=== PATIENT | female | born 1960 | race Caucasian/White ===

== ENCOUNTER 2016-07-23 16:36 | Emergency (ER) | payer MEDICARE ==
[2016-07-23 16:58] VITALS: O2SAT 98
--- NOTE | 2016-07-23 17:15 | ED.PDOC ---
History of Present Illness - General Chief Complaint: Abdominal Pain Stated Complaint: abdominal pain Time Seen by Provider: 07/23/16 16:40 Source: patient Additional Information: Constipated no bowel movement for 3 days - History of Present Illness Initial Comments: Rohit 55 y/o female with history of asthma and osteoporosis seen today with abdominal pain and no bowel movements since 3 days ago.No nausea or vomiting , denies abdominal surgeries.Seen by her primary md reinier and was prescribed cipro and mag citrate Timing/Duration: other - 3 days ago Severity: moderate Improving Factors: nothing Worsening Factors: nothing Associated Symptoms: denies symptoms Allergies/Adverse Reactions: Allergies NO KNOWN ALLERGY Allergy (Verified 04/06/15 11:38) Home Medications: Ambulatory Orders Alendronate Sodium [Fosamax] 70 mg PO WKLY 08/12/15 Meloxicam 15 mg PO DAILY 08/12/15 Montelukast Sodium [Singulair] 10 mg PO DAILY 08/12/15 Docusate Sodium [Dulcolax Stool Softener] 200 mg PO BEDTIME #60 cap 07/23/16 Pravastatin Sodium 40 mg PO DAILY 07/23/16 Review of Systems - Review of Systems Constitutional: States: no symptoms reported EENTM: States: no symptoms reported Respiratory: States: no symptoms reported Cardiology: States: no symptoms reported Gastrointestinal/Abdominal: States: see HPI, abdominal pain, constipation Genitourinary: States: no symptoms reported Musculoskeletal: States: no symptoms reported Skin: States: no symptoms reported Neurological: States: no symptoms reported Endocrine: States: no symptoms reported Hematologic/Lymphatic: States: no symptoms reported Past Medical History (General) - Patient Medical History Hx Seizures: No Hx Stroke: No Hx Dementia: No Hx Asthma: Yes Hx of COPD: No Hx Cardiac Disorders: No Hx Congestive Heart Failure: No Hx Pacemaker: No Hx Hypertension: No Hx Thyroid Disease: No Hx Diabetes: No Hx Gastroesophageal Reflux: No Hx Renal Disease: No Hx Cancer: No Hx of HIV: No Hx Hepatitis C: No Hx MRSA: No Hx Other PMH: Yes - osteoporosis Surgical History: no surgical history - Vaccination History Hx Tetanus, Diphtheria Vaccination: Yes Hx Influenza Vaccination: Yes Hx Pneumococcal Vaccination: Yes - Social History Hx Tobacco Use: Yes Hx Chewing Tobacco Use: No Hx Alcohol Use: No Hx Substance Use: No Hx Substance Use Treatment: No Hx Depression: No Hx Physical Abuse: No Hx Emotional Abuse: No Hx Suspected Abuse: No - Activities of Daily Living Patient Lives Alone: No - lives with family - Female History Patient : No Family Medical History - Family History Mother Family History: Unknown Living Status: Still Living Hx Cardiac Disease: Yes - dad Physical Exam - Physical Exam General Appearance: Alert, Anxious, No apparent distress Ears, Nose, Throat: hearing grossly normal, normal ENT inspection, normal pharynx Neck: non-tender, full range of motion, supple, normal inspection Respiratory: chest non-tender, lungs clear, normal breath sounds, no respiratory distress, no accessory muscle use Cardiovascular/Chest: normal peripheral pulses, regular rate, rhythm, no edema, no gallop, no JVD, no murmur Gastrointestinal/Abdominal: normal bowel sounds, distended - with gas Rectal Exam: other - empty rectal vault Extremity: normal range of motion, non-tender, normal inspection, no pedal edema Neurologic: no motor/sensory deficits, alert, normal mood/affect, oriented x 3 Skin Exam: normal color, warm/dry Progress - Progress Progress: 07/23/16 19:35 Declined intravenous fluids. - Results/Orders Results/Orders: 07/23/16 17:25 IV Care:Saline Lock per Protoc QSHIFT 07/23/16 18:03 Lactated Ringers [Lr] 1,000 ml IVS ONCE Laboratory Results WBC 9.3 K/mm3 (4.8-10.8) 07/23/16 17:25 RBC 4.14 M/mm3 (4.20-5.40) L 07/23/16 17:25 Hgb 12.6 gm/dL (12.0-16.0) 07/23/16 17:25 Hct 38.1 % (36.0-47.0) 07/23/16 17:25 MCV 92.2 fl (81.0-99.0) 07/23/16 17:25 MCH 30.4 pg (27.0-31.0) 07/23/16 17:25 MCHC 33.0 g/dL (33.0-37.0) 07/23/16 17:25 RDW 12.0 % (11.5-14.5) 07/23/16 17:25 Plt Count 243 K/mm3 (130-400) 07/23/16 17:25 MPV 8.3 fl (7.40-10.4) 07/23/16 17:25 Absolute Neuts (auto) 7.80 K/uL (1.8-6.8) H 07/23/16 17:25 Absolute Lymphs (auto) 0.90 K/uL (1.0-3.4) L 07/23/16 17:25 Absolute Monos (auto) 0.50 K/uL (0.2-0.8) 07/23/16 17:25 Absolute Eos (auto) 0.00 K/uL (0.0-0.4) 07/23/16 17:25 Absolute Basos (auto) 0.10 K/uL (0.0-0.1) 07/23/16 17:25 Neutrophils % 83.9 % (42.0-78.0) H 07/23/16 17:25 Lymphocytes % 9.9 % (20.0-50.0) L 07/23/16 17:25 Monocytes % 5.4 % (2.0-9.0) 07/23/16 17:25 Eosinophils % 0.2 % (1.0-5.0) L 07/23/16 17:25 Basophils % 0.6 % (0.0-2.0) 07/23/16 17:25 Sodium 135 mmol/L (135-145) 07/23/16 17:25 Potassium 4.1 mmol/L (3.6-5.0) 07/23/16 17:25 Chloride 99 mmol/L (101-111) L 07/23/16 17:25 Carbon Dioxide 28 mmol/L (21-31) 07/23/16 17:25 Anion Gap 12.1 (12-18) 07/23/16 17:25 BUN 8 mg/dL (7-18) 07/23/16 17:25 Creatinine 0.78 mg/dL (0.6-1.3) 07/23/16 17:25 BUN/Creatinine Ratio 10.3 (10-20) 07/23/16 17:25 Random Glucose 123 mg/dL (70-105) H 07/23/16 17:25 Serum Osmolality 269.8 mOsm/L (275-295) L 07/23/16 17:25 Calcium 9.4 mg/dL (8.4-10.2) 07/23/16 17:25 Total Bilirubin 0.6 mg/dL (0.2-1.0) 07/23/16 17:25 AST 24 IU/L (10-42) 07/23/16 17:25 ALT 15 IU/L (10-60) 07/23/16 17:25 Alkaline Phosphatase 53 IU/L (42-121) 07/23/16 17:25 Serum Total Protein 7.9 gm/dL (6.4-8.2) 07/23/16 17:25 Albumin 4.5 g/dl (3.2-5.5) 07/23/16 17:25 Globulin 3.4 gm/dL (2.3-3.5) 07/23/16 17:25 Albumin/Globulin Ratio 1.3 (1.1-1.9) 07/23/16 17:25 TSH 1.47 uIU/mL (0.34-5.60) 07/23/16 17:25 - EKG/XRAY/CT XRAY: abdomen - no intestinal obstuction CT Ordered: No Departure - Departure Clinical Impression: Abdominal gas pain, Constipation by delayed colonic transit Time of Disposition: 19:11 Disposition: Discharge to Home or Self Care Condition: Good Departure Forms: ED Discharge - Pt. Copy, Patient Portal Self Enrollment Instructions: DI for Abdominal Pain-Adult, Increased Dietary Fiber May Improve Constipation Conditions With Pelvic Gianni, DI for Constipation Diet: full liquid diet - for tonight only may have crackers,bananas Prescriptions: Docusate Sodium [Dulcolax Stool Softener] 200 mg PO BEDTIME #60 cap Home Medications: Ambulatory Orders Alendronate Sodium [Fosamax] 70 mg PO WKLY 08/12/15 Meloxicam 15 mg PO DAILY 08/12/15 Montelukast Sodium [Singulair] 10 mg PO DAILY 08/12/15 Docusate Sodium [Dulcolax Stool Softener] 200 mg PO BEDTIME #60 cap 07/23/16 Pravastatin Sodium 40 mg PO DAILY 07/23/16 Additional Instructions: EXCUSE FROM WORK 07/24/2016 Return 07/25/2016 without restrictions
--- NOTE | 2016-07-23 17:49 | RAD ---
EXAM DESCRIPTION: Abdomen Series CLINICAL HISTORY: pain COMPARISON: None FINDINGS: Supine and upright images of the abdomen were submitted. There is no free air in the abdomen. There is no evidence of bowel obstruction. Air-fluid levels within the colon could be secondary to a diarrheal state. IMPRESSION: Air-fluid levels within the colon could be secondary to a diarrheal state. Please correlate. Electronically signed by: Holden Hurley MD 07/23/2016 5:48 PM LAST PULLER
[2016-07-23] MEDS: LACTATED RINGERS 1,000 ML IVS ONE ×2 (18:14→18:30)
[2016-07-23] MEDS ORDERED: MORPHINE SULFATE INJ 10 MG/ML VIAL IM ONE (18:58)
[2016-07-23] MEDS ORDERED: PROMETHAZINE HCL INJ 25 MG/ML VIAL IM ONE (18:59)
[2016-07-23 19:31] VITALS: BP 169/87; TEMP 97.7
--- NOTE | 2016-08-05 00:12 | RAD ---
EXAM DESCRIPTION: Abdomen Series CLINICAL HISTORY: pain COMPARISON: None FINDINGS: Supine and upright images of the abdomen were submitted. There is no free air in the abdomen. There is no evidence of bowel obstruction. Air-fluid levels within the colon could be secondary to a diarrheal state. IMPRESSION: Air-fluid levels within the colon could be secondary to a diarrheal state. Please correlate. Electronically signed by: Holden Hurley MD 07/23/2016 5:48 PM [employer] STRA[employer]ENER AND HEATER
== END 2016-07-23 19:31 | disposition home or self-care (01) ==
LOC: ER 16:36
DX: K59.01 Slow transit constipation (principal); R14.1 Gas pain; Z87.891 Personal history of nicotine dependence; M81.0 Age-related osteoporosis without current pathological fracture; J45.909 Unspecified asthma, uncomplicated; Z79.899 Other long term (current) drug therapy
CPT/HCPCS: 36415; 74020; 80053; 84443; 85025; 87086; J2270; J2550

== ENCOUNTER → 2016-10-30 | Outpatient (CLI) | payer MEDICARE | END | disposition home or self-care (01) | LOC: GMAB 10:59 | PROVIDERS: ATTEND Family Medicine | DX: R53.82 Chronic fatigue, unspecified (principal) ==

== ENCOUNTER → 2017-03-19 | Outpatient (CLI) | payer MEDICARE ==
--- NOTE | 2017-03-21 11:57 | MAM ---
EXAM DESCRIPTION: 3D Screening BILATERAL CLINICAL HISTORY: 56 yearsFemaleSCREENING no complaints. Remote family history of breast cancer. Postmenopausal. No HRT. COMPARISON: Bilateral diagnostic digital examination 11/16/2013.. No prior reports available. TECHNIQUE: Bilateral CC and MLO projection full-field images, 3-D tomosynthesis digital mammographic technique. Also bilateral synthesized CC/ MLO full-field images. CAD not utilized. FINDINGS: The breast parenchymal density pattern is: Extremely dense breast tissue, which lowers the sensitivity of mammography. No skin thickening or nipple retraction bilateral intramammary lymph nodes. Retroareolar focal asymmetry 1200 clock position in the right breast. No associated microcalcifications. No focal, stellate mass or density, focal asymmetry , and no suspicious microcalcifications left breast. IMPRESSION: BI-RADS CATEGORY: 0 - INCOMPLETE- Need additional imaging evaluation. FOLLOW-UP: Recall for additional imaging: Exaggerated craniocaudal right breast 3-D tomosynthesis and targeted ultrasound retroareolar right breast, region of interest. Written communication concerning the IMPRESSION and Follow-up, will be mailed to the patient and referring health care provider. Electronically signed by: Rey Blackburn MD 03/21/2017 11:56 AM CDT
== END ==
LOC: MAMMO 09:30
PROVIDERS: ATTEND Family Medicine
DX: Z12.31 Encounter for screening mammogram for malignant neoplasm of breast (principal)
CPT/HCPCS: 77063; G0202

== ENCOUNTER → 2017-04-22 | Outpatient (CLI) | payer MEDICARE ==
--- NOTE | 2017-04-23 10:55 | US ---
EXAM DESCRIPTION: Breast,Right: Ultrasound CLINICAL HISTORY: 56 yearsFemaleABNORMAL MAMMO. Focal asymmetry retroareolar right breast on screening study. COMPARISON: Digital 3-D tomosynthesis screening bilateral breasts 03/19/2017. 3-D tomosynthesis diagnostic right breast today. TECHNIQUE: Transcutaneous scanning of the retroareolar right breast utilizing two-dimensional and Doppler modes. Scanning performed by the generalist and Dr. Blackburn. FINDINGS: Scanning of the 1200 clock position retroareolar right breast. A hypoechoic mass is visualized measuring 7.5 x 7.8 mm. This may or may not be associated with a duct. Well-defined wooten. Posterior acoustic enhancement. Nonvascular. Differential includes debris in the duct, papilloma, complicated cyst, or fibroadenoma. No other discrete solid masses or cysts. No parenchymal edema or large calcifications. No skin thickening. IMPRESSION: BI-RADS CATEGORY: 3 - PROBABLY BENIGN. Management: Short interval (6-month) follow-up digital diagnostic right breast mammography and continued surveillance right breast ultrasound. The FINDINGS and the follow-up plan were reviewed in person with the patient after the examination. Written communication explaining the IMPRESSION and follow-up will be mailed to the patient and referring care provider. Electronically signed by: Rey Blackburn MD 04/23/2017 10:53 AM STATEMENT CLERKS SUPERVISOR
--- NOTE | 2017-04-23 10:57 | MAM ---
EXAM DESCRIPTION: 3D Diagnostic, Right: Digital Mammography CLINICAL HISTORY: 56 yearsFemaleABNORMAL MAMMO abnormal focal asymmetry retroareolar right breast.. COMPARISON: 3-D tomosynthesis screening bilateral study 03/19/2017. Targeted right breast ultrasound following this examination.. Reports from prior examinations also reviewed. TECHNIQUE: Right exaggerated CC projection full-field images, 3-D tomosynthesis digital mammographic technique. Also right synthesized exaggerated CC full-field images. CAD not utilized. FINDINGS: The breast parenchymal density pattern is: Extremely dense breast tissue, which lowers the sensitivity of mammography. No skin thickening or nipple retraction retroareolar focal asymmetry at the 600 clock position is not seen on these images. Ultrasound: Scanning of the 1200 clock position retroareolar right breast. A hypoechoic mass is visualized measuring 7.5 x 7.8 mm. This may or may not be associated with a duct. Well-defined wooten. Posterior acoustic enhancement. Nonvascular. Differential includes debris in the duct, papilloma, complicated cyst, or fibroadenoma. No other discrete solid masses or cysts. No parenchymal edema or large calcifications. No skin thickening. IMPRESSION: BI-RADS CATEGORY: 3 - PROBABLY BENIGN. Management: Short interval (6-month) follow-up right breast digital diagnostic mammography and continued surveillance targeted right breast ultrasound. The FINDINGS and the follow-up plan were reviewed in person with the patient after the examination. Written communication explaining the IMPRESSION and follow-up will be mailed to the patient and referring care provider. Electronically signed by: Rey Blackburn MD 04/23/2017 10:55 AM DERMATOLOGY NURSE
== END | disposition home or self-care (01) ==
LOC: MAMMO 09:08
PROVIDERS: ATTEND Obstetrics & Gynecology
DX: R92.2 Inconclusive mammogram (principal)
CPT/HCPCS: 76641; G0206; G0279

== ENCOUNTER 2017-05-05 21:08 | Emergency (ER) | payer MEDICARE ==
[2017-05-05] MEDS ORDERED: MECLIZINE HCL 12.5 MG TAB PO ONE (21:36)
[2017-05-05] MEDS ORDERED: SODIUM CHLORIDE 0.9% 1000ML 1,000 ML IVS ONE (22:01)
--- NOTE | 2017-05-05 22:54 | CT ---
EXAM DESCRIPTION: Head CLINICAL HISTORY: dizzness COMPARISON: None Available TECHNIQUE: Contiguous axial CT images of the head were obtained. Coronal and sagittal reconstructions were created from the axial data. This exam was performed according to our departmental dose-optimization program, which includes automated exposure control, adjustment of the mA and/or kV according to patient size and/or use of iterative reconstruction technique. FINDINGS: There is no evidence of acute mass, mass effect, midline shift or hemorrhage. The ventricles and extra-axial CSF spaces are unremarkable. The brain parenchyma appears normal for the patient's age. No acute abnormalities of the bones is seen. IMPRESSION: No acute intracranial abnormality. Electronically signed by: Rye Ryan 05/05/2017 10:49 PM [facility]
[2017-05-05] MEDS ORDERED: LORazepam 0.5 MG TAB PO ONE ×2 (23:12)
== END 2017-05-05 23:29 | disposition home or self-care (01) ==
LOC: ER 21:08
DX: H83.09 Labyrinthitis, unspecified ear (principal); F41.9 Anxiety disorder, unspecified; R03.0 Elevated blood-pressure reading, without diagnosis of hypertension; E78.5 Hyperlipidemia, unspecified
CPT/HCPCS: 36415; 70450; 80053; 85025; J7030

== ENCOUNTER 2018-12-24 19:23 | Emergency (ER) | payer MEDICARE ==
[2018-12-24 20:08] VITALS: O2SAT 98
--- NOTE | 2018-12-24 20:14 | ED.PDOC ---
History of Present Illness - General Chief Complaint: Behavioral / Psych Stated Complaint: anxiety, feels hot, tightness in throat Time Seen by Provider: 12/24/18 20:10 Source: patient Exam Limitations: no limitations - History of Present Illness Initial Comments: SOB. HAS BEEN INTERMITTENT SINCE NOVEMBER. IS MUCH WORSE AND MORE FREQUENT WHEN SHE LAYS DOWN. HAS SEEN HER PCP AND URGENT CARE, WAS STARTED ON PPI AND THEN LEXAPRO. COMES TO HER B/C ITS GOTTEN WORSE. TIGHTNESS AND ANT NECK JUST ABOVE STERNAL NOTCH. Severity: moderate Improving Factors: nothing Worsening Factors: other - LAYING FLAT Associated Symptoms: denies symptoms Allergies/Adverse Reactions: Allergies NO KNOWN ALLERGY Allergy (Verified 04/06/15 11:38) Home Medications: Ambulatory Orders Meloxicam 15 mg PO DAILY 08/12/15 Montelukast [Singulair] 10 mg PO DAILY 08/12/15 Pravastatin Sodium 40 mg PO DAILY 07/23/16 Albuterol Sulfate 1.25 mg IN PRN PRN 12/24/18 Escitalopram [Lexapro] 10 mg PO DAILY 12/24/18 Lisinopril 10 mg PO DAILY 12/24/18 Lorazepam [Ativan] 1 mg PO TID PRN #10 tab 12/24/18 Pantoprazole Sodium 40 mg PO BEDTIME 12/24/18 Review of Systems - Review of Systems Constitutional: Denies: chills, fever EENTM: States: no symptoms reported Respiratory: States: short of breath. Denies: cough, wheezing Cardiology: Denies: chest pain, palpitations Gastrointestinal/Abdominal: States: no symptoms reported Genitourinary: States: no symptoms reported Musculoskeletal: States: no symptoms reported Skin: States: no symptoms reported Neurological: States: no symptoms reported Endocrine: States: no symptoms reported Hematologic/Lymphatic: States: no symptoms reported Past Medical History (General) - Patient Medical History Hx Seizures: No Hx Stroke: No Hx Dementia: No Hx Asthma: Yes Hx of COPD: No Hx Cardiac Disorders: No Hx Congestive Heart Failure: No Hx Pacemaker: No Hx Hypertension: Yes Hx Thyroid Disease: No Hx Diabetes: No Hx Gastroesophageal Reflux: No Hx Renal Disease: No Hx Cancer: No Hx of HIV: No Hx Hepatitis C: No Hx MRSA: No Hx Other - free text: HYPERLIPIDEMIA Surgical History: no surgical history - Vaccination History Hx Tetanus, Diphtheria Vaccination: No Hx Influenza Vaccination: No Hx Pneumococcal Vaccination: No Immunizations Up to Date: No - Social History Hx Tobacco Use: No Hx Chewing Tobacco Use: No Hx Alcohol Use: No Hx Substance Use: No Hx Substance Use Treatment: No Hx Depression: No Feels Threatened In Home Enviroment: No Feels Threatened In a Relationship: No Hx Physical Abuse: No Hx Emotional Abuse: No Hx Suspected Abuse: No - Activities of Daily Living Hospice Agency (if applicable):: None - Female History Patient is a Female of Child Bearing Age (10 -59 yrs old): Yes Patient : No Family Medical History - Family History Mother Family History: Unknown Living Status: Still Living Hx Cardiac Disease: Yes - dad Physical Exam - Physical Exam General Appearance: Alert, No apparent distress, Other - SLIGHTLY ANXIOUS Eye Exam: bilateral normal Ears, Nose, Throat: hearing grossly normal, normal ENT inspection Neck: non-tender, full range of motion, supple Respiratory: lungs clear, normal breath sounds Cardiovascular/Chest: regular rate, rhythm, no murmur Gastrointestinal/Abdominal: non tender, soft, no organomegaly Back Exam: normal inspection, no CVA tenderness Extremity: normal range of motion, non-tender, normal inspection Neurologic: no motor/sensory deficits, alert, normal mood/affect Skin Exam: normal color, warm/dry Lymphatic: no adenopathy Comments: PSYCH: MILD-MOD MR Progress - Progress Progress: 12/24/18 22:05 PT REPORTS NO RELIEF FROM GI SLIDER - EKG/XRAY/CT EKG: Sinus - RATE 72, NL AXIS, NL INTERVALS, OLD ANT WALL RI, , no ST T wave changes, Unchanged from - 04/06/15 XRAY: chest - WANDA Departure - Departure Clinical Impression: Anterior neck pain HTN (hypertension) Qualifiers: Hypertension type: essential hypertension Qualified Code(s): I10 - Essential (primary) hypertension ICD-10 Supporting Text: DDX: ANXIETY, GERD, ESOPHAGITIS, ALLERGIC RHINITIS Time of Disposition: 22:14 Disposition: Discharge to Home or Self Care Condition: Good Departure Forms: ED Discharge - Pt. Copy, Patient Portal Self Enrollment Instructions: Acid Reflux (Gastroesophageal Reflux Disease), Adult (DC), Anxiety, Adult (DC) Referrals: DWIGHT JACOME MD [Primary Care Provider] - 1-2 Weeks Prescriptions: Lorazepam [Ativan] 1 mg PO TID PRN #10 tab PRN Reason: Anxiety Home Medications: Ambulatory Orders Meloxicam 15 mg PO DAILY 08/12/15 Montelukast [Singulair] 10 mg PO DAILY 08/12/15 Pravastatin Sodium 40 mg PO DAILY 07/23/16 Albuterol Sulfate 1.25 mg IN PRN PRN 12/24/18 Escitalopram [Lexapro] 10 mg PO DAILY 12/24/18 Lisinopril 10 mg PO DAILY 12/24/18 Lorazepam [Ativan] 1 mg PO TID PRN #10 tab 12/24/18 Pantoprazole Sodium 40 mg PO BEDTIME 12/24/18
[2018-12-24] MEDS ORDERED: ALUM & MAG HYDROX-SIMETHICONE 30 ML, LIDOCAINE VISCOUS 2% 15 ML PO ONE ×2 (20:25)
[2018-12-24] MEDS ORDERED: LIDOCAINE HCL 2% (MOUTH-THROAT) 15 ML UD ONE ×2 (20:27→20:53)
[2018-12-24] MEDS ORDERED: ALUM & MAG HYDROX-SIMETHICONE 30 ML UD ONE ×2 (20:27→20:53)
--- NOTE | 2018-12-24 20:38 | RAD ---
EXAM DESCRIPTION: Chest,1 View CLINICAL HISTORY: Shortness of breath COMPARISON: Chest radiograph dated April 06, 2015 TECHNIQUE: Single upright portable frontal view of the chest FINDINGS: Cardiomediastinal silhouette and pulmonary vascularity are within normal limits. Lungs show no confluent infiltrates. No pleural effusion. No pneumothorax. No acute osseous abnormality. IMPRESSION: No acute cardiopulmonary process. Electronically signed by: Ameya Zhang MD 12/24/2018 8:36 PM CDT
[2018-12-24] MEDS ORDERED: LORazepam 0.5 MG TAB PO ONE (22:16)
[2018-12-24 22:34] VITALS: BP 137/98; TEMP 98.6
== END 2018-12-24 22:29 | disposition home or self-care (01) ==
LOC: ER 19:23
DX: M54.2 Cervicalgia (principal); I10 Essential (primary) hypertension; J45.909 Unspecified asthma, uncomplicated; Z79.899 Other long term (current) drug therapy

== ENCOUNTER → 2019-03-04 | Outpatient (CLI) | payer MEDICARE ==
--- NOTE | 2019-03-08 10:32 | MAM ---
EXAM DESCRIPTION: 3D Screening BILATERAL : Digital Mammography. CLINICAL HISTORY: 58 years Female SCREENING . No complaints and no personal history of breast cancer. Remote family history of breast cancer. No childbirth. Menarche unknown. Postmenopausal less than 3 years. No HRT. Lifetime risk of developing breast cancer (Tyrer-Cuzick model)(%): 8.0. COMPARISON: Bilateral screening digital breast tomosynthesis 03/19/2017. Diagnostic digital right breast tomosynthesis 04/22/2017. TECHNIQUE: Bilateral CC and MLO projection full-field images, digital tomosynthesis mammographic technique. Bilateral digital 2-D full-field MLO images. CAD not available for tomosynthesis or 2-D images. FINDINGS: The breast parenchymal density pattern is: Heterogeneously dense breast tissue, which may obscure small masses. No skin thickening or nipple retraction. Skin moles indicating by skin markers bilaterally. Scattered microcalcifications bilaterally No new focal, stellate mass or density, focal asymmetry , and no suspicious microcalcifications bilaterally. Stable mammograms compared to prior study. Taking into account, differences in mammographic technique. IMPRESSION: Benign exam. BIRAD CATEGORY: 2 BENIGN FINDINGS. RECOMMENDATIONS: FOLLOW UP: Routine digital bilateral mammographic screening, one year interval from February 2019. Written communication explaining the IMPRESSION and follow-up, will be mailed to the patient and referring health care provider. According to the [employer], yearly mammograms are recommended starting at age 40 and continuing as long as a woman is in good health. Any breast change noted on a breast self-exam should be reported promptly to the patient's healthcare provider. Breast MRI is recommended for women with an approximately 20-25% or greater lifetime risk of breast cancer, including women with a strong family history of breast or ovarian cancer and women who have been treated for Hodgkin's disease. A negative mammographic report should not delay tissue diagnosis in patients with significant clinical history or physical findings. Extremely dense breast tissue limits the sensitivity of digital mammography. Electronically signed by: Rey Blackburn MD 03/08/2019 10:31 AM CDT
== END ==
LOC: MAMMO 10:07
PROVIDERS: ATTEND Family Medicine
DX: Z12.31 Encounter for screening mammogram for malignant neoplasm of breast (principal); I10 Essential (primary) hypertension

== ENCOUNTER 2020-05-12 15:37 | Emergency (ER) | payer MEDICARE ==
--- NOTE | 2020-05-12 16:04 | ED.PDOC ---
History of Present Illness - General Time Seen by Provider: 05/12/20 16:03 Source: patient - History of Present Illness Initial Comments: 59-year-old female who is brought in by EMS from home for chief complaint of left foot pain following acute injury which occurred just prior to arrival. Patient states she was running when she tripped on a garden hose and fell to the ground. She is unsure of the mechanism of injury to the left foot but reports acute sharp 10/10 severity pain to the left foot. Primarily located to the proximal dorsal aspect of the foot which radiates to the plantar surface of the foot, constant, worse with attempted weightbearing or palpation. She denies any deformity or swelling or bruising. She has not taken any medicine for relief. Denies any weakness or numbness or other injuries. Allergies/Adverse Reactions: Allergies NO KNOWN ALLERGY Allergy (Verified 04/06/15 11:38) Home Medications: Ambulatory Orders Meloxicam 15 mg PO DAILY 08/12/15 Montelukast [Singulair] 10 mg PO DAILY 08/12/15 Pravastatin Sodium 40 mg PO DAILY 07/23/16 Albuterol Sulfate 1.25 mg IN PRN PRN 12/24/18 Escitalopram [Lexapro] 10 mg PO DAILY 12/24/18 Lisinopril 10 mg PO DAILY 12/24/18 Lorazepam [Ativan] 1 mg PO TID PRN #10 tab 12/24/18 Pantoprazole Sodium 40 mg PO BEDTIME 12/24/18 Tramadol HCl 50 mg PO Q6H PRN 7 Days #10 tab 05/12/20 Review of Systems - Review of Systems Review of Systems: 05/12/20 16:52 as per HPI All other Systems: Reviewed and Negative Past Medical History (General) - Patient Medical History Hx Seizures: No Hx Stroke: No Hx Dementia: No Hx Asthma: Yes Hx of COPD: No Hx Cardiac Disorders: No Hx Congestive Heart Failure: No Hx Pacemaker: No Hx Hypertension: Yes Hx Thyroid Disease: No Hx Diabetes: No Hx Gastroesophageal Reflux: No Hx Renal Disease: No Hx Cancer: No Hx of HIV: No Hx Hepatitis C: No Hx MRSA: No - Vaccination History Hx Tetanus, Diphtheria Vaccination: No Hx Influenza Vaccination: No Hx Pneumococcal Vaccination: No - Social History Hx Tobacco Use: No Hx Chewing Tobacco Use: No Hx Alcohol Use: No Hx Substance Use: No Hx Substance Use Treatment: No Hx Depression: No Hx Physical Abuse: No Hx Emotional Abuse: No Hx Suspected Abuse: No - Female History Patient : No Family Medical History - Family History Mother Family History: Unknown Living Status: Still Living Hx Cardiac Disease: Yes - dad Physical Exam - Physical Exam General Appearance: Alert, Comfortable, No apparent distress Eye Exam: bilateral normal Ears, Nose, Throat: hearing grossly normal, normal ENT inspection Neck: non-tender, full range of motion, supple, normal inspection Respiratory: lungs clear, normal breath sounds, no respiratory distress, no accessory muscle use Cardiovascular/Chest: normal peripheral pulses, regular rate, rhythm, no edema, no gallop, no JVD, no murmur Peripheral Pulses: radial,right: 2+, radial,left: 2+ Gastrointestinal/Abdominal: non tender, soft, no organomegaly Back Exam: normal inspection, no CVA tenderness Extremity: other - Left foot appears normal on inspection without bruising/swelling/deformity. There is marked tenderness to palpation to the proximal dorsal aspect of the left foot. Strength and sensation appears intact throughout. Pulses 2+ and equal bilaterally Neurologic: barrel repairer II-XII nml as tested, no motor/sensory deficits, alert, normal mood/affect, oriented x 3 Skin Exam: normal color, warm/dry Progress - Progress Progress: 05/12/20 16:23 Acute left foot pain -Consider left foot fracture, strain/sprain, contusion, other -Obtain x-ray imaging of the left foot, cold pack and ibuprofen for pain 05/12/20 16:53 -X-ray imaging of the left foot reveals nondisplaced metatarsal shaft fractures at the base of the second, third, and fourth metatarsal bones per my read -We will place patient in a posterior short leg splint to the left leg and have her follow-up with orthopedic surgery in the next 3 to 5 days Chris Brannon MD Billing #[id number] Departure - Departure Clinical Impression: Metatarsal bone fracture Qualifiers: Encounter type: initial encounter Metatarsal bone: unspecified metatarsal Fracture type: closed Fracture alignment: nondisplaced Laterality: left Qualified Code(s): S92.302A - Fracture of unspecified metatarsal bone(s), left foot, initial encounter for closed fracture Time of Disposition: 16:55 Disposition: Discharge to Home or Self Care Condition: Good Instructions: Foot Fracture (DC) Diet: resume usual diet Activity: other - no weight bearing Left leg until cleared by ortho Referrals: DWIGHT JACOME MD [Active Staff] - 1-2 Weeks Aniceto Bond MD [Active Staff] - 1-5 Days Prescriptions: Tramadol HCl 50 mg PO Q6H PRN 7 Days #10 tab PRN Reason: Pain Home Medications: Ambulatory Orders Meloxicam 15 mg PO DAILY 08/12/15 Montelukast [Singulair] 10 mg PO DAILY 08/12/15 Pravastatin Sodium 40 mg PO DAILY 07/23/16 Albuterol Sulfate 1.25 mg IN PRN PRN 12/24/18 Escitalopram [Lexapro] 10 mg PO DAILY 12/24/18 Lisinopril 10 mg PO DAILY 12/24/18 Lorazepam [Ativan] 1 mg PO TID PRN #10 tab 12/24/18 Pantoprazole Sodium 40 mg PO BEDTIME 12/24/18 Tramadol HCl 50 mg PO Q6H PRN 7 Days #10 tab 05/12/20 Additional Instructions: Keep the splint in place and do not bear weight on the left leg until cleared by orthopedic surgery. You will need to follow-up with orthopedic surgery in the clinic in the next 3 to 5 days for repeat evaluation and x-ray imaging of the left foot. You may continue to take [id number] medications as needed for pain such as Tylenol 650 mg every 6 hours as needed and ibuprofen 600 mg every 6 hours as needed. You may take the tramadol as directed for breakthrough pain but do not drive or operate heavy machinery while taking. Keep the left leg elevated often and you may apply a cold pack to the affected area for 10 to 15 minutes every 1-2 hours for the next 2 to 3 days to help limit pain and swelling as well.
--- NOTE | 2020-05-12 16:27 | RAD ---
EXAM: XR Left Foot Complete, 3 Views CLINICAL HISTORY: acute left foot pain/injury TECHNIQUE: Frontal, lateral and oblique views of the left foot. COMPARISON: No relevant prior studies available. FINDINGS: Bones/joints: There are acute nondisplaced fractures of the proximal shafts of the left 2nd, 3rd and 4th metatarsals. No dislocation. Soft tissues: No abnormality noted. No radiopaque foreign body. IMPRESSION: There are acute nondisplaced fractures of the proximal shafts of the left 2nd, 3rd and 4th metatarsals. Electronically signed by: Alia Mcdonald MD 05/12/2020 4:26 PM [facility]
[2020-05-12] MEDS ORDERED: ACETAMINOPHEN 500 MG TAB PO ONE (17:09)
[2020-05-12] MEDS ORDERED: traMADol HCL 50 MG TAB PO ONE (17:09)
[2020-05-12 18:14] VITALS: BP 149/78; TEMP 98.2; O2SAT 98
== END 2020-05-12 17:56 | disposition home or self-care (01) ==
LOC: ER 15:37
DX: S92.325A Nondisplaced fracture of second metatarsal bone, left foot, initial encounter for closed fracture (principal); S92.335A Nondisplaced fracture of third metatarsal bone, left foot, initial encounter for closed fracture; S92.345A Nondisplaced fracture of fourth metatarsal bone, left foot, initial encounter for closed fracture; I10 Essential (primary) hypertension; J45.909 Unspecified asthma, uncomplicated; Z79.899 Other long term (current) drug therapy; W01.0XXA Fall on same level from slipping, tripping and stumbling without subsequent striking against object, initial encounter; Y93.02 Activity, running; Y92.9 Unspecified place or not applicable

== ENCOUNTER → 2020-05-18 | Outpatient (CLI) | payer MEDICARE ==
--- NOTE | 2020-05-19 09:53 | RAD ---
EXAM DESCRIPTION: Foot,Left 3 Views x-rays CLINICAL HISTORY: 59 yearsFemale, PAIN IN LEFT FOOT COMPARISON: 05/12/2020 IMPRESSION: An overlying cast is present which somewhat limits evaluation for fine osseous detail. Comminuted mildly displaced acute fractures are present in the proximal metaphyses of the second, third, and fourth metatarsals. There may be slightly increased displacement at the fourth metatarsal fracture site since the prior exam. No significant callus formation. No definite evidence for acute fracture. Generalized soft tissue swelling. Electronically signed by: Kaiser Swan MD 05/19/2020 9:52 AM [facility]
== END ==
LOC: RAD 09:54
PROVIDERS: ATTEND Orthopaedic Surgery
DX: S92.322D Displaced fracture of second metatarsal bone, left foot, subsequent encounter for fracture with routine healing (principal); S92.332D Displaced fracture of third metatarsal bone, left foot, subsequent encounter for fracture with routine healing; S92.342D Displaced fracture of fourth metatarsal bone, left foot, subsequent encounter for fracture with routine healing

== ENCOUNTER → 2020-06-05 | Outpatient (CLI) | payer MEDICARE ==
--- NOTE | 2020-06-05 12:53 | RAD ---
EXAM DESCRIPTION: Foot,Left 3 Views CLINICAL HISTORY: 59 years Female, CLOSED FRACTURE OF METATARSAL BONES COMPARISON: 05/18/2020 Findings: 3 view(s)/radiograph(s) Similar alignment of the second through fourth left metatarsal base fractures. Slight interval healing although evaluation is limited by overlying cast material. No new fracture identified. No dislocation. Lisfranc alignment is maintained. IMPRESSION: Similar left second through fourth metatarsal base fractures. Electronically signed by: Valente Chisholm MD 06/05/2020 12:51 PM [facility]
== END ==
LOC: RAD 09:18
PROVIDERS: ATTEND Orthopaedic Surgery
DX: S92.325D Nondisplaced fracture of second metatarsal bone, left foot, subsequent encounter for fracture with routine healing (principal); S92.335D Nondisplaced fracture of third metatarsal bone, left foot, subsequent encounter for fracture with routine healing; S92.345D Nondisplaced fracture of fourth metatarsal bone, left foot, subsequent encounter for fracture with routine healing

== ENCOUNTER → 2020-06-26 | Outpatient (CLI) | payer MEDICARE ==
--- NOTE | 2020-06-26 13:37 | RAD ---
EXAM DESCRIPTION: Foot x-ray, Left 3 Views CLINICAL HISTORY: 59 years, Female, CLOSED FX OF METATARSAL BONE COMPARISON: Previous casted x-ray views of the left foot June 05, 2020 TECHNIQUE: AP, lateral, and oblique views of the left foot FINDINGS: Oblique fracture lines are seen through the bases of second through fourth metacarpals with periosteal new bone formation present. Other bones in the field of view appear intact. Bones appear osteopenic or osteoporotic. Degenerative narrowing of the joints of the toes and first metatarsal phalangeal joint. Partial healing consist with bridging callus at the fracture sites. Lateral view shows intact talus and calcaneus. IMPRESSION: Healing fractures of the left proximal second through fourth metacarpals. Electronically signed by: Dick Omer MD 06/26/2020 1:35 PM [facility]
== END ==
LOC: RAD 09:00
PROVIDERS: ATTEND Orthopaedic Surgery
DX: S92.325D Nondisplaced fracture of second metatarsal bone, left foot, subsequent encounter for fracture with routine healing (principal); S92.335D Nondisplaced fracture of third metatarsal bone, left foot, subsequent encounter for fracture with routine healing; S92.345D Nondisplaced fracture of fourth metatarsal bone, left foot, subsequent encounter for fracture with routine healing